=== PATIENT | female | born 1980 | race Caucasian/White ===

== ENCOUNTER 2022-02-06 09:03 | Outpatient (CLI) | payer OTHER, BC, SELFPAY ==
--- NOTE | ~2022-02-06 | MM_ITS ---
EXAMINATION: MM screening [place] BI w jeane HISTORY: Screening mammogram TECHNIQUE: Craniocaudal and mediolateral oblique 3-D tomosynthesis images were obtained and synthetic 2-D images were generated. CAD analysis was submitted and interpreted. COMPARISON: No prior mammogram is available for comparison at this institution. BREAST PARENCHYMAL COMPOSITION: The breasts are extremely dense, which lowers the sensitivity of mamm ography. FINDINGS: Bilateral breast masses are suggested but are partially obscured by dense stroma. Bilateral breast ultrasound examination is recommended. Bilateral microcalcifications are noted, some indeterminate. Bilateral diagnostic mammography with ma gnification views is recommended. IMPRESSION: 1. Bilateral microcalcifications, some indeterminate; bilateral diagnostic mammography with magnifica tion views are recommended 2. Suggestion of bilateral breast masses; bilateral breast ultrasound examination is recommended BI-RADS Category 0: Incomplete: Needs additional imaging evaluation. Reviewed, dictated and finalized at location A. IMPRESSION: 1. Bilateral microcalcifications, some indeterminate; bilateral diagnostic mamm ography with magnification views are recommended 2. Suggestion of bilateral breast masses; bilateral breast ultrasound examinati on is recommended BI-RADS Category 0: Incomplete: Needs additional imaging evaluation.
== END 2022-02-06 09:04 | disposition home or self-care (01) ==
PROVIDERS: PCP Physician Assistant; Visit Provider Obstetrics & Gynecology
DX: Z12.31 Encounter for screening mammogram for malignant neoplasm of breast (principal); R92.8 Other abnormal and inconclusive findings on diagnostic imaging of breast
CPT/HCPCS: 77063; 77067

== ENCOUNTER 2022-02-23 13:16 | Outpatient (CLI) | payer OTHER, BC, SELFPAY ==
--- NOTE | ~2022-02-23 | MMUS_ITS ---
EXAMINATION: MM diagnostic [place] BI w jeane, US breast BI complete HISTORY: Bilateral microcalcifications and suggestion of bilateral breast masses on 02/06/2022 screeni ng mammogram examination TECHNIQUE: Additional 3-D tomosynthesis images of both breasts were performed and synthetic 2-D image s were generated. Bilateral magnification views. CAD analysis was submitted and interpreted. High res olution complete bilateral breast ultrasound including all 4 quadrants and subareolar area of each br east was performed. COMPARISON: 02/06/2022 bilateral screening mammogram FINDINGS: MAMMOGRAPHIC FINDINGS: Numerous benign appearing microcalcifications are scattered in both breasts. No malignant features ar e identified at any of the calcifications sites. Bilateral partially circumscribed low-density masses are suggested. Extremely dense tissue may obscur e masses. Bilateral complete breast ultrasound examination was performed. ULTRASOUND: No suspicious solid lesion or shadowing of either breast is detected. Right breast: 1:00 1 cm from nipple: Parallel circumscribed 8 x 4.5 x 7.8 mm hypoechoic lesion without internal vas cularity, with some through transmission, likely a cyst. The sonographic features are benign 8:00 1 cm from nipple: Parallel circumscribed 17 x 10 x 24 mm sonolucency with through transmission a nd posterior enhancement consistent with simple cyst Left breast: 2:00 5 cm from nipple: Parallel circumscribed oval 3.1 x 5.8 x 6.4 mm sonolucency with through transm ission and posterior enhancement consistent with cyst 3:00 1 cm from nipple: Minimally septated 7.9 x 6.3 x 11 mm cyst 7:00 4 cm from nipple: 5 x 3.8 x 4.5 mm sonolucency with through transmission posterior enhancement c onsistent with simple cyst IMPRESSION: 1. Benign findings; no mammographic evidence of malignancy 2. Routine mammographic screening is recommended BI-RADS Category 2: Benign finding(s). Reviewed, dictated and finalized at location A. IMPRESSION: 1. Benign findings; no mammographic evidence of malignancy 2. Routine mammographic screening is recommended BI-RADS Category 2: Benign finding(s).
== END 2022-02-23 13:17 | disposition home or self-care (01) ==
PROVIDERS: PCP Physician Assistant; Visit Provider Obstetrics & Gynecology
DX: R92.8 Other abnormal and inconclusive findings on diagnostic imaging of breast (principal); N60.02 Solitary cyst of left breast; N60.01 Solitary cyst of right breast
CPT/HCPCS: 76641; 77062; 77066; G0279

== ENCOUNTER 2022-08-17 11:29 | Outpatient (CLI) | payer OTHER, BC, SELFPAY | END 2022-08-17 11:30 | disposition home or self-care (01) | LOC: ANHSURGERY 11:33 | PROVIDERS: PCP Physician Assistant; Visit Provider Surgery | DX: K42.9 Umbilical hernia without obstruction or gangrene (principal) | CPT/HCPCS: 36415; 86850; 86900; 86901 ==

== ENCOUNTER 2022-08-22 01:26 | Day surgery (SDC) | payer OTHER, BC, SELFPAY ==
--- NOTE | 2022-08-16 13:51 | PC.NURSE ---
Addendum entered by Emilie Lal RN 08/16/22 14:09: PLEASE USE HIBICLENS ANTIBACTERIAL SOAP WITH YOUR SHOWER BEFORE COMING TO THE HOSPITAL Original Note: Report to the Outpatient Waiting Room, entrance under the green pavilion located off [facility], at time ___0600____ on date __08/22/22 . Planned Procedure Time: 0730_. Time changes happen often and if your time is changed the preop area will call you the afternoon before. - You and your visitor will be asked to self-screen and do not enter if you have any COVID symptoms. - Only one visitor is requested with a max of two and NO children visitors are allowed at this time. - The patient visitor may be requested to leave or wait in car when not with patient due to distancing restrictions. - A mask is optional within the hospital at this time. Patients may have clear liquids (water, carbonated beverages, clear teas, apple juice) until 3 hours prior to surgery with a maximum of 20 ounces. - No food from midnight until time of surgery - Infants may have breast milk until 4 hours before surgery, infant formula 6 hours prior to surgery. - Children will be allowed to drink immediately following surgery. If applicable, please bring a bottle or sippy cup to assist with drinking. Juice, water, soda, and popsicles are readily available. For infants on formula, please bring formula the day of surgery. Pacifiers are allowed. Take the following medications with a SIP of water the morning of surgery: NONE DO NOT STOP ANY OF YOUR OTHER PRESCRIPTION MEDICATIONS PRIOR TO SURGERY ?EXCEPT THE FOLLOWING Medications to discontinue per physician VITAMINS AND SUPPLIMENTS Date to take last dose 08/19/22 Please no make-up, nail israeli, hairspray, perfume, deodorant, or body powder the day of surgery. No jewelry (including any body piercings) or valuables the day of surgery, leave them at home. Please take a shower or bath the night before, or the morning of, surgery with an antibacterial soap. Wear comfortable, loose fitting clothing. Children are encouraged to wear pajamas. - Jewelry must be removed prior to entering the operating room. Rings and piercings that are not removed may be cut off. - The hospital will not accept responsibility for valuables. - Please leave all valuables, including medications, at home the day of surgery. If you are going home after surgery, a licensed otr flatbed driver must drive you home. - NO public transportation without another adult if you receive anesthesia. - We recommend that an adult stay with you for 24 hours following discharge. - We also recommend that you do not drive, make important decision, drink alcoholic beverages, or take any drugs that were not prescribed by your health care provider for at least 24 hours after your discharge time. For Pediatric surgeries, we recommend two adults accompany the child home. Follow any additional instructions given to you from your surgeon. If you or anyone in your household have experienced Covid symptoms in the past week, please notify your surgeon or the nurse liaison at the phone number below for possible testing. Telephone instructions given to PATIENT_and asked if any additional questions and then verbalized understanding. Patient advised to call surgeon office or pre surgery nurse liaison [phone] if any additional questions.
[2022-08-22] VITALS (8 sets, daily range): BP systolic 87–143; BP diastolic 55–79; PULSE 54–77; RESP 11–15; TEMP 36.4–36.8; O2SAT 98–100; BMI 21.9
[2022-08-22] MEDS: KETOROLAC 15 MG/ML VIAL (*BKC) IV PUSH (07:00)
[2022-08-22] MEDS: LACTATED RINGERS 1,000 ML 30 ML IV CONT ×2 (07:00→10:06)
[2022-08-22] MEDS: ACETAMINOPHEN 500 MG TABLET 1000 MG PO (07:00)
--- NOTE | 2022-08-22 07:16 | WPDANESEPPF ---
Anes - Initial Pre Proc Eval Procedure: Operation Date: 08/22/22 07:30 Proposed Procedures p Laparoscopic Umbilical Hernia Repair with Mesh, Davinci Assisted - Samri Lyles DO Date/Time: 08/22/22 07:16 Surgeon: Samir Lyles DO Pre Op Diagnosis: Umbilical Hernia 2cm Patient Data Age: 41 Gender: F Height: 1.6 m Weight: 56.25 kg Allergies Allergy/AdvReac Type Severity Reaction Status Date / Time Penicillins Allergy Unknown Other Verified 08/16/22 13:42 Sulfa (Sulfonamide Allergy Unknown Other Verified 08/16/22 13:42 Antibiotics) Home Medications Medication Instructions Recorded Confirmed Type cetirizine 10 mg capsule (Zyrtec) 10 mg PO DAILY 06/29/22 08/16/22 History chaste tree 1 tab-cap PO DAILY 08/16/22 08/16/22 History milk thistle seed 1 tablet PO DAILY 08/16/22 08/16/22 History na-syglzqwcyp-ermksncgj-turmeri 250 mg-250 mg tablet (Liver Complex) multivitamin 1 tablet PO DAILY 08/16/22 08/16/22 History Patient hx anesthesia problems: none Family hx anesthesia problems: none Results Review: All pre-operative results and documents have been reviewed as part of the pre-operative evaluation. [facility], LAT[facility] Surgical History Surgical History H/O lumpectomy 2000 Family History Family History Father Hypertension Family history of malignant neoplasm of urinary bladder Other Cerebrovascular accident Social History Social History Years smoked: 5 Smoking status: Former smoker Smoking end date: 05/28/99 Additional smoking assessment comments: 2005 Alcohol intake: current Drinks per week: 4 Substance use: never Living arrangements: with family Anes - Eval Final PreProcedure Day of Procedure 08/22/22 07:16 Patient weight: normal Heart: regular rate and rhythm Lungs: clear to auscultation Airway: Mallampati scale class II Neurological: alert and oriented Last oral intake: >/= 8 hours ASA classification: II Emergent: no Anesthetic plan: proceed Anesthesia type and monitoring: general ETT and standard monitoring Results Review: All pre-operative results and documents have been reviewed as part of the pre-operative evaluation. Informed Consent: The patient's anesthetic plan and its attendant risks and benefits were discussed with the patient/family/POA. Questions were solicited and answers provided to the satisfaction of the patient/family/POA.
--- NOTE | 2022-08-22 07:23 | WPDHPUPDATE1 ---
History and Physical Update Update Date/Time: 08/22/22 07:23 History and Physical has been reviewed, including an updated exam of the patient. There are NO changes in the patient's condition. Risks, benefits, and alternatives have been discussed and questions answered. Patient agrees to proceed with procedure.
--- NOTE | 2022-08-22 07:23 | PM.IMHP ---
H&P: HPI History of Present Illness Date/Time: 08/22/22 07:23 Chief Complaint: umbilical hernia Narrative: 41 yo woman presents for umbilical hernia repair. She denies any changes since last seen in office. Review of Systems Review of Systems: All systems reviewed & are unremarkable except as noted in HPI and below Constitutional: Constitutional: Denies chills, Denies fever(s), Denies headache(s) and Denies weight loss Eyes: Eyes: Denies change in vision ENT: Denies dizziness, Denies headache(s), Denies neck mass and Denies throat swelling Cardiovascular: Cardiovascular: Denies chest pain, Denies lightheadedness and Denies dyspnea Respiratory: Respiratory: Denies cough, Denies dyspnea and Denies wheezing Gastrointestinal: Gastrointestinal: Denies abdominal pain, Denies change in bowel habits, Denies nausea and Denies vomiting Genitourinary: Genitourinary: Denies hematuria and Denies dysuria Musculoskeletal: Musculoskeletal: Reports as per HPI Integumentary/Breasts: Skin/Breast: Reports as per HPI Neurologic: Denies dizziness and Denies headache(s) Allergic/Immunologic: Allergic/Immunologic: Denies throat swelling and Denies wheezing PMFSH Surgical History Surgical History H/O lumpectomy 2000 Family History Family History Father Hypertension Family history of malignant neoplasm of urinary bladder Other Cerebrovascular accident Social History Social History Years smoked: 5 Smoking status: Former smoker Smoking end date: 05/28/99 Additional smoking assessment comments: 2005 Alcohol intake: current Drinks per week: 4 Substance use: never Living arrangements: with family Meds Home Medications and Allergies Home Medications Medication Instructions Recorded Confirmed Type cetirizine 10 mg capsule (Zyrtec) 10 mg PO DAILY 06/29/22 08/16/22 History chaste tree 1 tab-cap PO DAILY 08/16/22 08/16/22 History milk thistle seed 1 tablet PO DAILY 08/16/22 08/16/22 History kr-szchdndesb-fwgghujfa-turmeri 250 mg-250 mg tablet (Liver Complex) multivitamin 1 tablet PO DAILY 08/16/22 08/16/22 History Allergies Allergy/AdvReac Type Severity Reaction Status Date / Time Penicillins Allergy Unknown Other Verified 08/16/22 13:42 Sulfa (Sulfonamide Allergy Unknown Other Verified 08/16/22 13:42 Antibiotics) Exam Const: General: no acute distress and alert Orientation/consciousness: patient oriented x3 HENMT: Head: normocephalic and atraumatic Ears: hearing grossly normal bilaterally Face/Nose/Sinus: Normal nares present Mouth: Yes Normal oral and palatal mucosa present Eyes: Periorbital: periorbital findings normal Sclera: sclerae normal EOM: EOMs intact bilaterally Neck: Neck: normal visual inspection, no lymphadenopathy and trachea midline Chest: Chest palpation & inspection: normal inspection of the chest Resp: Effort & Inspection: normal respiratory effort Auscultation: clear to auscultation bilaterally Cardio: Jugular venous distension: no JVD Rate: regular rate Rhythm: regular rhythm Heart sounds: S1 normal heart sound present and S2 normal heart sound present Peripheral pulses: Peripheral pulses 2+ throughout GI: Inspection: normal to inspection GI Palp: Yes Soft to palpation, No Tenderness to palpation present (GI), No Guarding due to palpation present (GI) and No Rebound tenderness present Percussion: Yes normal to percussion Auscultation: normal bowel sounds Other: 2cm umbilical hernia : General: Yes no CVA tenderness Back/Spine/Pelvis: Back: no CVA tenderness Neuro: General: patient oriented x3, no focal motor deficits and CN's II-XI intact bilaterally Cognition (Neuro): normal cognition Speech: normal speech Motor exam (neuro): 5/5 motor strength present throu
[2022-08-22] MEDS: SCOPOLAMINE 1.5 MG PATCH TRANSDERM (07:29)
[2022-08-22] MEDS: ceFAZolin 2 GM/D5W 50 ML 2 GM/50 ML BAG IVPB (07:30)
--- NOTE | 2022-08-22 10:03 | W.PM.PROC2 ---
Procedure Note - Detailed Date of Procedure 08/22/22 Pre-op Diagnosis Umbilical Hernia, Rectus Diastasis Post-op Diagnosis Same Procedure Performed 1. Laparoscopic 1 cm umbilical hernia repair with mesh, da Scooby assisted 2. Laparoscopic repair of rectus diastasis, da Scooby assisted Surgeon Samir Lyles, Anesthesia General and Local (Exparel) Indications This is a 41-year-old woman who presented with a periumbilical bulge that she noticed about 6 or 7 years ago. It was minimally symptomatic at the time but has gotten larger. She also has a rectus diastasis. A 1-2 cm umbilical hernia was identified on physical exam. Discussions were made with the patient about treatment options and decision was made to proceed with robotic assisted laparoscopic umbilical hernia repair with mesh. Findings Laparoscopic umbilical hernia repair was performed. Patient was found to have a 1 cm umbilical hernia containing preperitoneal fat. She also had about a 4 cm rectus diastasis. Most of the diastasis appeared to be centered around the umbilicus and just above it, therefore decision was made to repair the diastasis with the hernia repair. A robotic transabdominal preperitoneal approach was utilized. The diastasis and hernia was repaired using an 0 Stratafix running absorbable suture. A Bard soft mesh cut to 12 cm 6 5 cm was placed within the preperitoneal pocket and secured to the abdominal wall. No specimens were obtained for pathology. Description of Procedure Procedure as well as risks, benefits, and alternatives were discussed with the patient. Written consent was obtained and placed in chart prior to procedure. Patient was brought back to surgical suite. She was placed supine on operating table. Time-out was done to confirm patient and procedure. She was then intubated by the anesthesia department. A bump was placed under her left hip, and the bed was flexed slightly to extend the space between her costal margin and iliac crest. Her abdomen was prepped and draped in sterile fashion using chlorhexidine prep. A 5 millimeter incision was made in the left upper quadrant, and a 5 millimeter Optiview trocar was advanced through the abdominal layers under direct visualization. Once inside the abdominal cavity, carbon dioxide insufflation was used to create a pneumoperitoneum. Her abdomen was inspected. An 8 millimeter incision was made in the left lower quadrant, and an 8 millimeter robotic trocar was placed under direct visualization. Another 8 millimeter incision was made in the left lateral abdomen, and an 8 millimeter robotic trocar was placed under direct visualization. Exparel was infiltrated along the lateral abdominal peck to perform a transversus abdominis plane block bilaterally. The 5 millimeter port was removed, and another 8 mm port was placed in this location under direct visualization. The robotic arms were brought up to the patient's bedside and secured to the ports. The camera and instruments were inserted, and I then moved over to the robotic console and took control of the camera and instruments. After careful thorough inspection of the abdominal cavity, I began my dissection at the hernia. A preperitoneal plane was dissected beginning the left lateral abdomen extending to the midline to the right lateral abdomen using scissors with electrocautery. The hernia sac and preperitoneal fat was also reduced along the preperitoneal plane. I then measured the hernia size. The hernia measured 1 cm. Patient also 4 cm rectus diastasis at the umbilicus and for about 6-8 cm cephalad. The fascia of the umbilical hernia and the rectus diastasis was closed using an 0-Stratafix running suture in a vertical fashion. A 12 cm x 7.5 cm Bard soft mesh was then placed within the preperitoneal pocket. This was oriented vertically with the mesh centered on the hernia defect. The mesh was then secured to the abdominal wall using 3-0 Vicryl simple interrupted trejo
[2022-08-22] MEDS: ONDANSETRON INJ 4 MG/2 ML VIAL IV PUSH (10:36)
[2022-08-22] MEDS: diphenhydrAMINE HCl INJ 50 MG/ML VIAL 25 MG IV PUSH (11:11)
== END 2022-08-22 12:25 | disposition home or self-care (01) ==
PROVIDERS: PCP Physician Assistant; Visit Provider Surgery
PROC: (CPT 49591; principal; 2022-08-22 07:30)
DX: K42.9 Umbilical hernia without obstruction or gangrene (principal); M62.08 Separation of muscle (nontraumatic), other site; Z87.891 Personal history of nicotine dependence
CPT/HCPCS: 49591; S2900; A9270; C1781; C9290; J0690; J1100; J1200; J1885; J2250; J2405; J2704; J3010; J7120

== ENCOUNTER → 2023-06-15 08:47 | Outpatient (CLI) | payer OTHER, BC, SELFPAY ==
--- NOTE | ~2023-06-15 | MMUS_ITS ---
EXAMINATION: MM diagnostic [place] BI w jeane, US breast BI complete HISTORY: Left breast swelling and redness. TECHNIQUE: Additional 3-D tomosynthesis images of the breasts were performed and synthetic 2-D images were generated. CAD analysis was submitted and interpreted. High resolution bilateral complete breas t ultrasound was performed. COMPARISON: 02/23/2022 . BREAST PARENCHYMAL COMPOSITION: The breasts are extremely dense, which lowers the sensitivity of mamm ography. FINDINGS: MAMMOGRAPHIC FINDINGS: The right breast is stable. No new masses, calcifications or architectural distortion. There is a dev eloping cluster of indeterminate calcifications in the mid outer aspect of the left breast posteriorl y. ULTRASOUND: Complete bilateral US of all 4 quadrants of the breasts and retroareolar region was reviewed. Right breast: At 1:00, 5 cm from the nipple there is an oval hypoechoic mass measuring 8 x 5 x 8 mm w ith low-level internal echoes, no posterior features, parallel orientation and no internal vascularit y. At 1:00, 4 cm from the nipple, there is an irregular shaped hypoechoic 8 mm mass without posterior features or internal vascularity. At 2:00, 3 cm from the nipple there is an oval parallel oriented h ypoechoic circumscribed mass with subtle posterior acoustic enhancement and no internal vascularity m easuring 7 mm. At 3:00, 4 cm from the nipple, there is a benign-appearing oval 5 mm hypoechoic mass w ith parallel orientation, no posterior features and no internal vascularity. There is a 5 mm cyst at 3:00 near the areola. There is a 3 cm cyst at 9:00, 3 cm from the nipple. There is a 4 mm cyst at 10: 00, 7 cm from the nipple. Left breast: At 1:00, 5 cm from the nipple, there is an oval irregular shaped hypoechoic 7 mm mass wi th parallel orientation, posterior acoustic shadowing and no internal vascularity. At 2:00, 6 cm from the nipple, there is an oval hypoechoic mass measuring 6 mm with circumscribed margins, parallel lesly entation, no posterior features or internal vascularity. At 2:00, 4 cm from the nipple there is an ir regular shaped hypoechoic 1.3 cm mass with mixed posterior attenuation and internal vascularity. At 5 :00, 3 cm from the nipple there is a 5 mm cyst. At 6:00, 5 cm from the nipple there is a round 5 mm h ypoechoic mass, likely benign. At 9:00 near the areola there is a 2 12 mm cyst. There is a complicate d cyst at 11:00, 4 cm from the nipple measuring 6 mm. IMPRESSION: 1. Clustered indeterminate calcifications mid outer aspect of the left breast which have developed si nce prior study. Stereotactic left breast biopsy recommended. 2: Multiple abnormal bilateral breast masses which warrant further evaluation with biopsy. These inc lude an 8 mm mass in the right breast at 1:00, 4 cm from the nipple, a 7 mm mass of the right breast at 2:00, 3 cm from the nipple, an 8 mm mass of the left breast at 1:00, 5 cm from the nipple, a 1.3 c m mass of the left breast at 2:00, 4 cm from the nipple. BI-RADS CATEGORY 4-SUSPICIOUS ABNORMALITY Reviewed, dictated and finalized at location A. [employer] IMPRESSION: 1. Clustered indeterminate calcifications mid outer aspect of the left breast w hich have developed since prior study. Stereotactic left breast biopsy recommen ded. 2: Multiple abnormal bilateral breast masses which warrant further evaluation with biopsy. These include an 8 mm mass in the right breast at 1:00, 4 cm from the nipple, a 7 mm mass of the right breast at 2:00, 3 cm from the nipple, an 8 mm mass of the left breast at 1:00, 5 cm from the nipple, a 1.3 cm mass of the left breast at 2:00, 4 cm from the nipple. BI-RADS CATEGORY 4-SUSPICIOUS ABNORMALITY
== END ==
PROVIDERS: PCP Obstetrics & Gynecology; Visit Provider Obstetrics & Gynecology
DX: R92.8 Other abnormal and inconclusive findings on diagnostic imaging of breast (principal); R92.1 Mammographic calcification found on diagnostic imaging of breast
CPT/HCPCS: 76641; 77062; 77066; G0279